=== PATIENT | female | born 1935 | race Caucasian/White ===

== ENCOUNTER 2018-07-25 13:41 | Outpatient (CLI) | payer MEDICARE, BC | END 2018-07-25 13:42 | disposition home or self-care (01) | LOC: BICCT 13:41 | PROVIDERS: ATTEND Specialist | DX: S32.000A Wedge compression fracture of unspecified lumbar vertebra, initial encounter for closed fracture (principal); S22.000A Wedge compression fracture of unspecified thoracic vertebra, initial encounter for closed fracture; M48.061 Spinal stenosis, lumbar region without neurogenic claudication; M99.83 Other biomechanical lesions of lumbar region; M47.894 Other spondylosis, thoracic region | CPT/HCPCS: 72128; 72131 ==

== ENCOUNTER 2018-10-25 06:36 | Inpatient (IN) | payer MEDICARE, BC ==
[2018-10-25 07:38] LABS: #Monocytes 0.6 thou/uL (0.11-0.59); #Neutrophils 7.2 thou/uL (1.40-6.50); %Basophils 0.1 % (0.0-1.0); %Eosinophils 0.1 % (0.0-10.0); %Monocytes 6.7 % (0.0-10.0); %Neutrophils 82.1 % (42.0-75.0); Hemoglobin 11.7 g/dL (12.0-16.0); Mean Corpuscular HGB CONC 34.5 g/dL (32.0-36.0); Mean Corpuscular Hemoglobin 33.9 pg (27.0-31.0); Platelet Count 194 thou/uL (130-400); RBC Distribution Width 12.4 % (11.5-14.5); Red Blood Cell (RBC) Count 3.47 mill/uL (4.20-5.40); White Blood Cell (WBC) Count 8.8 thou/uL (4.8-10.8)
[2018-10-25 08:07] LABS: ALT (SGPT) 12 U/L (8-55); AST (SGOT) 23 U/L (5-34); Albumin 3.2 g/dL (3.4-4.8); Alkaline Phosphatase 61 U/L (40-150); Anion Gap 9 mmol/L (10-20); BUN (Urea Nitrogen) 11 mg/dL (9.8-20.1); Bilirubin, Total 0.6 mg/dL (0.2-1.2); Calc. Creatinine Clearance 0 mL/min (70-130); Calcium 8.4 mg/dL (7.8-10.44); Carbon Dioxide 30 mmol/L (23-31); Chloride 104 mmol/L (98-107); Estimated GFR-MDRD 70; Globulin 2.9 g/dL (2.4-3.5); Glucose 105 mg/dL (83-110); Lipase 7 U/L (8-78); Potassium 3.4 mmol/L (3.5-5.1); Protein, Total 6.1 g/dL (6.0-8.3); Sodium 140 mmol/L (136-145)
[2018-10-25 08:14] LABS: CKMB 2.6 ng/mL (0-6.6); Troponin I 0.013 ng/mL (< 0.028)
[2018-10-25] MEDS ORDERED: Pregabalin 50 MG CAP PO SCH (08:15)
[2018-10-25] MEDS ORDERED: Adacel (T-DAP) 0.5 ML SYRINGE ONE (08:24)
--- NOTE | 2018-10-25 09:13 | CT ---
ABDOMEN AND PELVIC CT SCAN WITH IV CONTRAST: Date: 10/25/18 HISTORY: 83-year-old female with history of abdominal pain and nausea. COMPARISON: 08/14/16. FINDINGS: Small bilateral pleural effusions and minimal pleural based parenchymal changes, possibly mild subseg mental atelectasis. Evidence for cardiomegaly. Status post cholecystectomy. The pancreas demonstrates two small hypodensities, one in the body portion measuring 0.8 cm, and the other one more in the pooja l portion measuring 0.5 x 1.0 cm. These could represent small cysts or small cystic neoplasms. Six mo nths to 1 year follow-up is recommended. Small spleen. Adrenal glands are unremarkable. Probable smal l left lower pole cyst or small cortical infarct. No renal calculus or acute obstruction. There ar e several loops of small bowel, which appear to be jejunum, which show some borderline dilatation and some mild wall thickening. There is also suggestion of some mild wall thickening of scattered areas in the colon. These are nonspecific, but could raise the possibility of some mild enterocolitis. No C T evidence for acute appendicitis. Total right hip replacement changes with extensive associated tera fact. Postop changes involving the lumbar spine at L4 and L5 with pedicle screws and associated artif act. No intra-abdominal significant fluid collection or abscess. No evidence for overt adenopathy. Sc oliotic changes of the lumbosacral spine. No evidence for overt metastasis. IMPRESSION: 1. Small bilateral pleural effusions and pleural based parenchymal changes, probably some minimal burciaga bsegmental atelectasis. 2. Two small low attenuation foci within the pancreas, possibly small cysts or cystic masses. Consid er follow-up abdomen CT scan with and without IV contrast, with pancreatic mass protocol, in 6 months to 1 year. 3. No renal calculus or obstruction. 4. Mildly dilated with minimal associated wall thickening of several loops of small bowel, which are probably jejunum, as well as some scattered areas of minimal potential wall thickening in the colon, raising concern for nonspecific enterocolitis. No evidence for bowel obstruction or abscess, adenop athy, metastasis, or other significant acute process. POS: OFF
[2018-10-25 09:37] LABS: Bilirubin Negative (Negative); Blood, Urine Moderate (Negative); Clarity CLEAR (Clear); Glucose, Urine (Dipstick) Negative (Negative); Leukocyte Negative (Negative); Nitrite Negative (Negative); Protein, Urine (Dipstick) 30 mg/dL (Neg-Trace); Specific Gravity, Urine 1.038 (1.002-1.036); pH, Urine 7.5 (5.0-9.0)
[2018-10-25 09:42] LABS: Bacteria/HPF None Seen HPF (None Seen); Hyaline Casts/LPF 0-3 HYALINE CAST LPF (0-3 Hyaline); RBC/HPF 21-50 HPF (0-3); Squamous Epithelial 0-3 HPF (0-3); WBC/HPF 0-3 HPF (0-3)
[2018-10-25] MEDS ORDERED: metroNIDAZOLE 500 MG/100 ML BAG ONE (10:59)
[2018-10-25] MEDS ORDERED: Ondansetron ODT 4 MG TAB PO PRN (12:30)
[2018-10-25 15:35] VITALS: BMI 18.1
[2018-10-25] MEDS ORDERED: ISOVUE-370 76%-LOCM 1 ML ONE (16:14)
[2018-10-25] MEDS: Sodium Chloride 0.9% 1,000 ML IV SCH ×2 (16:39→21:03)
[2018-10-25] MEDS: Famotidine/PF 20 mg/2ml Vial SLOW IVP SCH (21:04)
[2018-10-25] MEDS: Carvedilol 3.125 MG TAB PO SCH (21:04)
[2018-10-25] MEDS: Ondansetron PF 4 MG/2 ML Vial IVP PRN (21:12)
[2018-10-25] MEDS: Acetaminophen 325 MG TAB PO PRN (22:32)
[2018-10-26] MEDS: Sodium Chloride 0.9% 1,000 ML IV SCH ×4 (00:45→16:46)
[2018-10-26 05:07] LABS: #Basophils 0.1 thou/uL (0.0-0.2); #Eosinphils 0.1 thou/uL (0.0-0.7); #Lymphocytes 2.2 thou/uL (1.20-3.40); #Monocytes 0.8 thou/uL (0.11-0.59); #Neutrophils 5.2 thou/uL (1.40-6.50); %Basophils 0.6 % (0.0-1.0); %Eosinophils 1.1 % (0.0-10.0); %Lymphocytes 26.4 % (21.0-51.0); %Monocytes 9.6 % (0.0-10.0); %Neutrophils 62.2 % (42.0-75.0); Hemoglobin 12.5 g/dL (12.0-16.0); Mean Corpuscular HGB CONC 33.8 g/dL (32.0-36.0); Mean Corpuscular Hemoglobin 33.4 pg (27.0-31.0); Mean Corpuscular Volume 98.9 fL (78.0-98.0); Mean Platelet Volume 8.2 fL (7.4-10.4); Platelet Count 200 thou/uL (130-400); RBC Distribution Width 12.4 % (11.5-14.5); Red Blood Cell (RBC) Count 3.73 mill/uL (4.20-5.40); White Blood Cell (WBC) Count 8.3 thou/uL (4.8-10.8)
[2018-10-26 05:17] LABS: ALT (SGPT) 10 U/L (8-55); AST (SGOT) 22 U/L (5-34); Albumin 2.9 g/dL (3.4-4.8); Alkaline Phosphatase 64 U/L (40-150); Anion Gap 11 mmol/L (10-20); BUN (Urea Nitrogen) 10 mg/dL (9.8-20.1); Bilirubin, Total 0.6 mg/dL (0.2-1.2); Calc. Creatinine Clearance 203 mL/min (70-130); Calcium 8.1 mg/dL (7.8-10.44); Carbon Dioxide 26 mmol/L (23-31); Chloride 108 mmol/L (98-107); Estimated GFR-MDRD 75; Globulin 2.7 g/dL (2.4-3.5); Glucose 76 mg/dL (83-110); Protein, Total 5.6 g/dL (6.0-8.3); Sodium 142 mmol/L (136-145)
[2018-10-26 05:21] LABS: Potassium 2.8 mmol/L (3.5-5.1)
[2018-10-26] MEDS: Ondansetron PF 4 MG/2 ML Vial IVP PRN ×3 (05:58→18:38)
[2018-10-26] MEDS: NS 0.9% w/ 20 MEQ KCL 1,000 ML IV SCH ×3 (07:34→23:18)
[2018-10-26] MEDS: Famotidine/PF 20 mg/2ml Vial SLOW IVP SCH ×2 (07:34→20:43)
[2018-10-26] MEDS: Carvedilol 3.125 MG TAB PO SCH ×2 (07:35→20:43)
[2018-10-26] MEDS: Digoxin 0.125 MG TAB PO SCH (07:36)
[2018-10-26] MEDS: Acetaminophen 325 MG TAB PO PRN ×2 (07:40→23:17)
[2018-10-26] MEDS ORDERED: Bisacodyl 10 MG SUPP PR SCH (11:00)
[2018-10-27] MEDS: Ondansetron PF 4 MG/2 ML Vial IVP PRN ×2 (00:48→06:43)
[2018-10-27] MEDS: Sodium Chloride 0.9% 1,000 ML IV SCH ×3 (05:41→20:35)
[2018-10-27 05:59] LABS: Anion Gap 14 mmol/L (10-20); BUN (Urea Nitrogen) 10 mg/dL (9.8-20.1); Calc. Creatinine Clearance 231 mL/min (70-130); Calcium 7.4 mg/dL (7.8-10.44); Carbon Dioxide 20 mmol/L (23-31); Chloride 111 mmol/L (98-107); Estimated GFR-MDRD 87; Glucose 45 mg/dL (83-110); Lipase 9 U/L (8-78); Potassium 4.6 mmol/L (3.5-5.1); Sodium 140 mmol/L (136-145)
[2018-10-27] MEDS: Dextrose 50% Abboject 50 ML SYRINGE ONE ×2 (06:08→06:10)
[2018-10-27] MEDS: D5 0.9% NS w/ 20 mEq KCl 1,000 ML IV SCH ×2 (06:49→16:40)
[2018-10-27] MEDS ORDERED: Mag-Al 1200 mg/1200 mg/30 ML UDCUP PO SCH (07:00)
[2018-10-27] MEDS ORDERED: Promethazine 25 MG TAB PO PRN ×2 (07:04→12:30)
[2018-10-27] MEDS: Famotidine/PF 20 mg/2ml Vial SLOW IVP SCH ×2 (07:46→20:46)
[2018-10-27] MEDS: Carvedilol 3.125 MG TAB PO SCH ×2 (07:47→20:46)
[2018-10-27] MEDS: Digoxin 0.125 MG TAB PO SCH (07:48)
[2018-10-27] MEDS: Promethazine HCl 25 MG in Sodium Chloride 0.9% 50 ML IVPB PRN ×2 (08:13→20:46)
[2018-10-27] MEDS ORDERED: Promethazine HCl 12.5 MG SUPP PR PRN (12:30)
[2018-10-27] MEDS ORDERED: Promethazine HCl 25 MG/ML VIAL SLOW IVP PRN (12:31)
[2018-10-27] MEDS ORDERED: Promethazine HCl 25 MG SUPP PR PRN (12:31)
[2018-10-27] MEDS: metroNIDAZOLE 500 MG in Premix Bag 1 BAG IVPB SCH ×2 (13:51→21:46)
[2018-10-28] MEDS: D5 0.9% NS w/ 20 mEq KCl 1,000 ML IV SCH ×4 (03:32→14:54)
[2018-10-28] MEDS: Sodium Chloride 0.9% 1,000 ML IV SCH ×2 (05:03→14:26)
[2018-10-28] MEDS: metroNIDAZOLE 500 MG in Premix Bag 1 BAG IVPB SCH ×3 (05:07→20:05)
[2018-10-28 06:00] LABS: Digoxin 0.48 ng/mL (0.8-2.0)
[2018-10-28] MEDS: Carvedilol 3.125 MG TAB PO SCH ×2 (07:41→20:00)
[2018-10-28] MEDS: Promethazine HCl 25 MG in Sodium Chloride 0.9% 50 ML IVPB PRN (07:41)
[2018-10-28] MEDS: Famotidine/PF 20 mg/2ml Vial SLOW IVP SCH ×2 (07:42→20:00)
--- NOTE | 2018-10-28 07:48 | HP ---
HISTORY OF PRESENT ILLNESS: The patient is an 83-year-old female, who made an emergency room visit to [facility] on 10/24/2018; at that time, complained of nausea. She was seen and evaluated in the emergency room. She returned back to [facility] at [facility] with similar symptoms of nausea, somewhat intractable. She did not note any fever, any diarrhea associated with this. She was recently started on some Levaquin for possible diverticulitis. She was seen and evaluated in the emergency room. CT scan of the abdomen was significant for some dilated loops of small bowel as well as some thickening, possibly enterocolitis. She continued to have the episodes of nausea and vomiting; however, despite tolerating some oral intake and having adequate IV hydration in the emergency room, the patient did not wish to return home, she wished to spend a night in the hospital. Otherwise, no other medical complaints are noted except for the above mentioned nausea. ALLERGIES: SHE IS ALLERGIC TO CODEINE. CURRENT MEDICATIONS: 1. Coreg. 2. Digoxin. 3. Eliquis. 4. Lyrica. 5. Oxybutynin. 6. Centrum. 7. Potassium chloride. 8. Labetalol. 9. She recently was started on Levaquin as well. PAST MEDICAL HISTORY: Significant for hypertension, breast cancer, skin cancer, history of atrial fibrillation status post multiple ablations. She also has a history of pacemaker, defibrillator, and gastroesophageal reflux disease. PAST SURGICAL HISTORY: Positive for cholecystectomy, hysterectomy, mastectomy, multiple orthopedic surgeries, pacemaker and defibrillator placement, right hip replacement. REVIEW OF SYSTEMS: GI: Positive as above. : Otherwise negative. CARDIOVASCULAR: Negative. RESPIRATORY: Negative. NEUROLOGIC: Otherwise negative. FAMILY HISTORY: Noncontributory. PHYSICAL EXAMINATION: VITAL SIGNS: Blood pressure 116/61, pulse 80, respirations 20, and O2 sat 96%. GENERAL: She is sleepy, drowsy, resting comfortably in a hallway bed. HEENT: Extraocular muscles intact. Sclerae and conjunctivae clear. Normocephalic and atraumatic. NECK: Supple. Full range of motion. No masses. No bruits. LUNGS: Clear. HEART: Reveals a regular rhythm without murmur, gallops, or rubs. ABDOMEN: Soft. There is some minimal lower quadrant tenderness noted without evidence of rebound or guarding. Bowel sounds are present and active. LABORATORY DATA: Her hemoglobin is 11.7, hematocrit 38.0, white blood count of 8.8. Sodium 140, potassium 3.4, chloride 104, CO2 of 30, BUN 11, creatinine 0.78. Urinalysis, some ketones, no evidence of any infection. IMPRESSION: This is an 83-year-old female with intractable vomiting, may have a low-grade colitis at this time. PLAN: The patient has been started on Cipro and will be continued on that IV at this time. We will start her on clear liquids, manage her fluids, and off her antiemetics; probably, she will be admitted to OBS and she probably can be discharged tomorrow. Job ID: [id number]
--- NOTE | 2018-10-28 07:51 | CON ---
DATE OF CONSULTATION: HISTORY OF PRESENT ILLNESS: The patient is an 83-year-old female, who was in her normal state of health until five days prior to admission when she developed nausea and vomiting. She reports she had a large amount of vomiting and dry heaves and subsequently developed diffuse abdominal soreness. She reports that she has had problems in the past with diarrhea, which she describes as brown and loose. She has had this intermittently over the last several years. Last colonoscopy was five years ago. She had an upper endoscopy two years ago without any abnormalities found. Dr. Lujan is her primary water chemist. PAST MEDICAL HISTORY: Significant for breast cancer, congestive heart failure, coronary artery disease, atrial fibrillation, and cardiac ablation. PAST SURGICAL HISTORY: Includes pacemaker defibrillator placement, right hip replacement, mastectomy, back surgery x2, hysterectomy, and cholecystectomy. ALLERGIES: CODEINE. SOCIAL HISTORY: She is a former smoker. Does not drink alcohol. FAMILY HISTORY: Negative for GI or liver disease. REVIEW OF SYSTEMS: CONSTITUTIONAL: Positive for weight loss gradually over the last two years. No fever or chills. HEENT: Eyes, no blurred vision or double vision. ENT, no sore throat or earaches. CARDIOVASCULAR: No chest pain or palpitations. PULMONARY: No shortness of breath, cough, or wheezing. GI: See above. : No hematuria or dysuria. MUSCULOSKELETAL: No joint pain or muscle weakness. NEUROLOGIC: No seizure activity or numbness. PHYSICAL EXAMINATION: GENERAL: Shows a cachectic white female in no acute distress. VITAL SIGNS: Temperature 97.8, pulse 71, respiratory rate 18, and blood pressure 157/78. HEENT: Unremarkable. NECK: Supple. CHEST: Clear. CARDIOVASCULAR: Regular rate and rhythm. ABDOMEN: Soft and nontender, without organomegaly or masses. RECTAL: Deferred. EXTREMITIES: Normal. NEUROLOGIC: Nonfocal. LABORATORY DATA: Laboratory shows a white blood cell count of 8.8, hemoglobin 11.7, hematocrit 34.0. Chemistry shows a potassium 3.4, albumin 3.2, lipase of 7. The patient had a CT on 10/25/2018 that showed small bilateral pleural effusions and pleural-based parenchymal changes, two small attenuation foci within the pancreas, mildly dilated with minimal associated wall thickening of several loops of small bowel, probably of jejunum and some thickening of the colon. ASSESSMENT: 1. Persistent nausea and vomiting of unknown etiology. 2. Abnormal CT scan of the small intestine and colon. 3. Diarrhea-Clostridium difficile culture and assays for Campylobacter and Shigella are negative. 4. Coronary artery disease. 5. Atrial fibrillation, on Eliquis. RECOMMENDATIONS: 1. Hold Eliquis. 2. Upper endoscopy per Dr. Lujan. 3. PPI. 4. Check a digoxin level. Job ID: [id number]
[2018-10-28] MEDS ORDERED: PROPOFOL 200 MG/20 ML VIAL ONE (13:55)
[2018-10-28] MEDS: Digoxin 0.125 MG TAB PO SCH (13:56)
--- NOTE | 2018-10-28 20:23 | PRG ---
DATE OF SERVICE: 10/28/2018 SUBJECTIVE: Ms. Hidalgo is doing okay. She has just recently had an EGD. EGD was normal without findings. She still complain of some nausea, has some episodes of diarrhea. OBJECTIVE: VITAL SIGNS: Temperature is 98.3 and BP 138/78. LUNGS: Clear. HEART: Reveals no murmur. ABDOMEN: Soft. Bowel sounds are present and active. No hepatosplenomegaly is noted at this time. LABORATORY DATA: Digoxin level is 0.48. Stool cultures are negative. IMPRESSION: 1. Prolonged nausea and vomiting of unknown etiology. 2. Some diarrhea, unknown etiology. PLAN: We will advance her diet as tolerated. We will reassess tomorrow. In light of normal EGD, she possibly could go home tomorrow. Job ID: [id number]
--- NOTE | 2018-10-28 21:19 | EKG ---
Test Reason : Blood Pressure : / mmHG Vent. Rate : 073 BPM Atrial Rate : 073 BPM P-R Int : 000 ms QRS Dur : 162 ms QT Int : 446 ms P-R-T Axes : 000 -43 -21 degrees QTc Int : 491 ms AV dual-paced rhythm with occasional ventricular-paced complexes Abnormal ECG When compared with ECG of 18-JAN-2016 09:46, Vent. rate has decreased BY 10 BPM Confirmed by SANCHEZ STAUFFER, SJosé Luis ([id number]) on 10/28/2018 9:19:05 PM Referred By: ELIDA Confirmed By:DR. Caron BRADFORD MD
[2018-10-29] MEDS: D5 0.9% NS w/ 20 mEq KCl 1,000 ML IV SCH ×5 (01:05→21:04)
--- NOTE | 2018-10-29 04:13 | OP ---
DATE OF PROCEDURE: 10/28/2018 OPERATIVE PERFORMED: Esophagogastroduodenoscopy. PREOPERATIVE DIAGNOSIS: An 83-year-old female with nausea and vomiting. EGD. POSTOPERATIVE DIAGNOSES: 1. Small hiatal hernia. 2. Otherwise normal exam. DESCRIPTION OF PROCEDURE: The patient was placed in the left lateral position and was given sedation by Anesthesia Department. A Pentax video gastroscope, under direct vision, was passed down the oropharynx past the GE junction into the stomach, and subsequently into the descending duodenum. The esophageal mucosa appeared normal toward the esophagus. The GE junction: No pathology seen. The patient has small hiatal hernia. Retroflexion failed to show any pathology in the fundus and cardia. The gastric body: No pathology seen. There was mild focal edema in the gastric antrum. The pyloric opening wide open. There was no pyloric channel ulcer seen. The duodenal bulb, descending duodenum: No pathology seen. The stomach was decompressed. The scope removed. OVERALL IMPRESSION: Negative exam. RECOMMENDATION: 1. A clear liquid diet. 2. Advance diet as tolerated. If the patient tolerates the diet very well, consider discharge hopefully tomorrow. Job ID: [id number]
[2018-10-29] MEDS: metroNIDAZOLE 500 MG in Premix Bag 1 BAG IVPB SCH (05:24)
[2018-10-29] MEDS: Famotidine/PF 20 mg/2ml Vial SLOW IVP SCH ×2 (08:19→20:01)
[2018-10-29] MEDS: Carvedilol 3.125 MG TAB PO SCH ×2 (08:20→20:03)
[2018-10-29] MEDS: Digoxin 0.125 MG TAB PO SCH (08:20)
[2018-10-29] MEDS: Acetaminophen 325 MG TAB PO PRN ×2 (11:33→22:21)
--- NOTE | 2018-10-29 11:40 | PRG ---
DATE OF SERVICE: 10/29/2018 SUBJECTIVE: Ms. Hidalgo is still nauseous, though she still has some diarrhea. No fevers reported. She states she still feels weak. OBJECTIVE: VITAL SIGNS: Temperature 97.7, BP 153/89. LUNGS: Clear. HEART: Reveals no murmur. ABDOMEN: Soft. There is no evidence of abdominal tenderness. No hepatosplenomegaly is noted. IMPRESSION: 1. Gastroenteritis, possible colitis. 2. Recurrent nausea of unknown etiology. PLAN: I have looked at her medicines, I am stopping all medicines at this time to see if that will improve her nausea including Flagyl as well as promethazine, she seems to be sedated to me. We will advance her diet to regular as tolerated and try some Imodium as needed for diarrhea. We will reassess. Job ID: [id number]
[2018-10-29] MEDS: Ondansetron ODT 4 MG TAB PO PRN ×2 (12:45→22:20)
--- NOTE | 2018-10-29 13:12 | PQF ---
CLINICAL DOCUMENTATION IMPROVEMENT CLARIFICATION FORM: ICD-10 Updated PLEASE DO AN ADDENDUM TO THE PROGRESS NOTE WITH ANY DOCUMENTATION UPDATES OR ADDITIONS AND CARRY THROUGH TO DC SUMMARY. THANK YOU. DATE: 10/29/18 ATTN: Dr. Laron Freeman Please exercise your independent, professional judgment in responding to the clarification form. Clinical indicators are provided on the bottom of this form for your review Please check appropriate box(s): BMI <19 with associated diagnosis of: (check one) [ ] Cachexia [ ] Underweight without malnutrition [ ] Other diagnosis [ ] Unable to determine In addition, please specify: Present on Admission (POA): [ ] Yes [ ] No [ ] Unable to Determine For continuity of documentation, please document condition throughout progress notes and discharge summary. Thank You. CLINICAL INDICATORS - SIGNS / SYMPTOMS / LABS GI consult 10/27: 5 days prior to admission she developed nausea & vomiting Positive for weight loss gradually over the last 2 yrs PE: Shows a cachectic white female in no acute distress [employer] Specialist assessment 10/27: BMI 18.1 Suboptimal Oral intake related to nausea, poor appetite RISKS: H&P 10/27: 83 yr old with intractable vomiting. TREATMENT: [employer] Specialist Assessment triggered for PO, N, V, BMI 18.1 BMI < 19.0 Under weight 19.0 - 24.9 Healthy 25.0 - 29.9 Slightly Overweight 30.0 - 34.9 Obese 35.0 - 39.9 Severely Obese 40.0 and Over Morbidly Obese Thank you, Inga (This form is maintained as a part of the permanent medical record) 2014 [employer]. All Rights Reserved Inga Sun RN, BSN [email or web address] Office: [phone] [facility]
[2018-10-30] MEDS: Famotidine/PF 20 mg/2ml Vial SLOW IVP SCH (07:45)
[2018-10-30] MEDS: Carvedilol 3.125 MG TAB PO SCH (07:47)
[2018-10-30] MEDS: Digoxin 0.125 MG TAB PO SCH (07:48)
[2018-10-30] MEDS ORDERED: Famotidine 20 MG TAB PO SCH (09:00)
[2018-10-30 13:41] VITALS: BP 150/67; TEMP 98.2
--- NOTE | 2018-10-30 18:16 | PRG ---
DATE OF SERVICE: 10/29/2018 SUBJECTIVE: Ms. Lisa Hidalgo is a very pleasant 83-year-old female, hospitalized with abdominal pain, nausea, vomiting, and diarrhea. The patient's abdominal CAT scan revealed no pathology except for mild thickening of the small bowel loops and possibly colon. She had an EGD yesterday, which revealed no pathology to nausea and vomiting. The patient has had clear liquid diet and she is able to keep the clear liquid down. She has nausea, but no vomiting. She had been having diarrhea. She had 2 stools yesterday, both watery and this morning had one stool. No blood in the stool. She has some intermittent abdominal cramping. Stool studies have been negative in the past. She is on Flagyl, which has been discontinued this morning by Dr. Freeman. OBJECTIVE: GENERAL: The patient appears very comfortable. She is looking elderly female, appears comfortable. VITAL SIGNS: Stable. Afebrile. Pulse is 75, blood pressure 153/89. HEENT: Conjunctivae clear. CARDIOVASCULAR: First and second heart sounds . LUNGS: Clear to auscultation. ABDOMEN: Soft. Abdomen is nondistended. Abdomen is nontender. There is no organomegaly. IMPRESSION: 1. Nausea and vomiting, etiology unclear. May possibly be drug induced. 2. Diarrhea, possibly infectious. The frequency is not that bad. She has had only 2 stools yesterday and 1 stool today. RECOMMENDATIONS: 1. Heart-healthy diet. 2. Discontinue antibiotics. 3. Stool for culture and ova and parasites. 4. If she tolerates her diet with her nausea, vomiting, may consider discharge home tomorrow. Job ID: [id number]
--- NOTE | 2018-10-30 20:27 | PRG ---
DATE OF SERVICE: 10/30/2018 SUBJECTIVE: Ms. Hidalgo is doing better. She does not have any further vomiting. She is still having very small episodic diarrheal movements. Otherwise, no other medical complaints are noted. OBJECTIVE: VITAL SIGNS: Blood pressure 153/80 and temperature 97.5. LUNGS: Clear. HEART: Reveals no murmur. ABDOMEN: Soft. Bowel sounds are present and active. Stool studies performed. screen is normal. Campylobacter, Shigella, E. coli toxin are normal. IMPRESSION: Colitis, gastroenteritis of unknown etiology. PLAN: The patient can be safely discharged home today on home medicines. She also will be placed on pantoprazole 40 mg p.o. daily. She will follow up with me in 1 week. Job ID: [id number]
--- NOTE | 2018-10-31 06:13 | DIS ---
DATE OF ADMISSION: 10/27/2018 DATE OF DISCHARGE: 10/30/2018 DISCHARGE DIAGNOSES: 1. Intractable vomiting. 2. Gastroenteritis, etiology unknown. 3. Dehydration. ADMITTING PHYSICIAN: Dr. Laron Freeman. CONSULTING PHYSICIAN: Dr. Lujan. HOSPITAL SUMMARY: The patient is an 83-year-old female, who was admitted to the emergency room on 10/25/2018 with retractable vomiting. She had been seen in the ER twice, subsequently admitted to hospital and has been on IV fluids. She continued to have intractable vomiting while hospitalized associated with some diarrhea. GI consult was obtained. She underwent EGD, which is unremarkable. All stool studies for C. difficile, Shiga toxin, Campylobacter, E. coli, and parasite screens were normal. She slowly improved where she was able to tolerate oral intake with no further nausea or vomiting. She continued to have some small bouts of diarrhea. She was ready to be discharged home. DISCHARGE MEDICATIONS: 1. Zofran 4 mg every 6 hours as needed for nausea. 2. Pantoprazole 40 mg p.o. daily. 3. Additionally, she was maintained on her home medicines of Eliquis one tablet p.o. b.i.d. 4. Repatha 1 shot every 2 weeks. 5. Carvedilol b.i.d. 6. Oxybutynin 50 mg daily. 7. Furosemide 40 mg daily. 8. Digoxin 0.125 mg daily. 9. Tramadol as needed for pain. 10. Lyrica 200 mg at bedtime. 11. Imodium as needed for diarrhea. FOLLOWUP: She will follow up with me in 1 week. Job ID: [id number]
--- NOTE | 2018-11-02 12:05 | EKG ---
Test Reason : Blood Pressure : / mmHG Vent. Rate : 072 BPM Atrial Rate : 300 BPM P-R Int : 000 ms QRS Dur : 174 ms QT Int : 444 ms P-R-T Axes : 000 -48 -17 degrees QTc Int : 486 ms AV sequential or dual chamber electronic pacemaker Confirmed by RYDER KAY DO ([id number]), editor trade journal EDWIN LEE ([id number]) on 11/02/2018 12:05:15 PM Referred By: Confirmed By:RYDER KAY DO
== END 2018-10-30 14:04 | disposition home or self-care (01) | DRG 392 ==
LOC: ERS 06:36 → ERHOLD 11:37 → T4-A 15:15 → OBSVTOIN 10-27 12:01
PROVIDERS: ADMIT Family Medicine; ATTEND Family Medicine
PROC: 0DJ08ZZ Inspection of Upper Intestinal Tract, Via Natural or Artificial Opening Endoscopic (ICD-10-PCS; principal; 2018-10-28)
DX: K52.9 Noninfective gastroenteritis and colitis, unspecified (principal); K21.9 Gastro-esophageal reflux disease without esophagitis; I25.10 Atherosclerotic heart disease of native coronary artery without angina pectoris; I48.91 Unspecified atrial fibrillation; E86.0 Dehydration; I11.0 Hypertensive heart disease with heart failure; I50.9 Heart failure, unspecified; K44.9 Diaphragmatic hernia without obstruction or gangrene; Z88.5 Allergy status to narcotic agent; Z87.891 Personal history of nicotine dependence; Z85.3 Personal history of malignant neoplasm of breast; Z85.828 Personal history of other malignant neoplasm of skin; Z95.810 Presence of automatic (implantable) cardiac defibrillator; Z90.49 Acquired absence of other specified parts of digestive tract; Z96.641 Presence of right artificial hip joint; Z90.10 Acquired absence of unspecified breast and nipple
CPT/HCPCS: 36415; 36416; 74177; 80048; 80053; 80162; 81003; 81015; 82550; 82553; 83690; 84484; 85025; 87045; 87046; 87324; 87328; 87329; 87449; 87899; 90471; 90662; 90715; 90732; 93005; 93010; 96365; 96367; G0008; G0009; J0744; J2405; J2550; J2704; J7050; Q0162; S0028

== ENCOUNTER 2018-12-20 13:31 | Outpatient (CLI) | payer MEDICARE, BC ==
--- NOTE | 2018-12-20 16:21 | CT ---
LUMBAR SPINE CT SCAN WITHOUT IV CONTRAST: History: S32.000A closed wedge fracture of lumbar vertebra. Back pain for years. Bilateral leg numbness. Prior lumbar surgery. FINDINGS: There is some levoscoliosis of the lower lumbar vertebral column and dextroscoliosis of the upper lum bar/lower thoracic vertebral column. There is heterogeneous bony demineralization. Pedicle screws sta bilize the L4 and L5 region. L1-2: There is some mild disc osteophytosis with mild lateral recess stenosis. No central canal steno sis. L2-3: There is more extensive disc osteophytosis with moderate central canal and moderate bilateral r ecess stenosis and some bilateral foraminal stenosis. L3-4: There is extensive disc osteophytosis with severe ligament and facet hypertrophic changes, much worse on the right side with severe central spinal canal stenosis and very severe right lateral rece ss stenosis and severe right foraminal stenosis and mild left foraminal stenosis. L4-5: There is diffuse disc osteophytosis with mild lateral recess stenosis and moderate to severe ri ght foraminal stenosis. Mild disc osteophytosis at L5-S1 without significant central canal, lateral recess, or significant fo raminal stenosis. No evidence for acute compression or burst type fracture. IMPRESSION: Pedicle screw placement changes at L4-5. Extensive scoliotic changes. Variable severity multilevel ca nal, lateral recess, and foraminal stenosis most marked at L3-4 followed by L4-5. POS: CONRAD
--- NOTE | 2018-12-20 17:33 | CT ---
THORACIC SPINE CT SCAN WITHOUT IV CONTRAST: 12/20/18 HISTORY: Closed wedge fracture of the thoracic vertebra, unspecified thoracic vertebral level, initial encount er. Back pain for years radiating pain to left shoulder. Fall last night. Pain became worse. FINDINGS: Generalized disc osteophytosis and bone demineralization of the thoracic spine. Dextroscoliosis of th e upper lumbar lower thoracic vertebral column. No evidence for acute fracture or dislocation or sign ificant malalignment. No evidence for focal bone lesion. Incidental bilateral old pulmonary granuloma calcifications. Multiple bilateral thyroid nodules to 0.9 x 1.5 cm on the left side. Deformity of th e distal right clavicle, evidence for old injury. IMPRESSION: Fairly extensive thoracic disc osteophytosis and facet arthrosis, evidence for spondylosis. Bone aleida neralization. No evidence for acute fracture or dislocation or significant malalignment. Other findin gs as above. POS: CONRAD
== END 2018-12-20 13:32 | disposition home or self-care (01) ==
LOC: BICCT 13:31
PROVIDERS: ATTEND Specialist
DX: S32.000A Wedge compression fracture of unspecified lumbar vertebra, initial encounter for closed fracture (principal); S22.000A Wedge compression fracture of unspecified thoracic vertebra, initial encounter for closed fracture; M47.814 Spondylosis without myelopathy or radiculopathy, thoracic region; M25.78 Osteophyte, vertebrae; M48.061 Spinal stenosis, lumbar region without neurogenic claudication
CPT/HCPCS: 72128; 72131

== ENCOUNTER 2019-03-25 10:33 | Outpatient (CLI) | payer MEDICARE, BC ==
--- NOTE | 2019-03-25 11:19 | CT ---
Noncontrast enhanced CT images thoracic spine. HISTORY: Recent history of fall with back pain. Axial images are obtained with coronal and sagittal reconstructions. Comparison made to previous exam from 12/20/2018. Old distal right clavicular fracture is seen. Multilevel thoracic spine osteophytes and disc degenerative changes seen. No significant evidence of acute thoracic spine lesions seen. No evidence of soft tissue abnormality seen. IMPRESSION: No evidence of acute thoracic spine pathology seen.
== END 2019-03-25 10:34 | disposition home or self-care (01) ==
LOC: BICCT 10:33
PROVIDERS: ATTEND Nurse Practitioner Family
DX: M47.814 Spondylosis without myelopathy or radiculopathy, thoracic region (principal)
CPT/HCPCS: 72128

== ENCOUNTER 2019-07-17 12:32 | Emergency (ER) | payer MEDICARE, BC ==
--- NOTE | 2019-07-17 13:24 | RAD ---
Exam:3 views right wrist HISTORY: Pain. Injury. Fall. COMPARISON: None FINDINGS: Diffuse bone demineralization. Degenerative change involving the first carpometacarpal join t space. No definite fracture. Vascular calcifications are noted. No significant soft tissue swelling IMPRESSION: 1. Diffuse bone demineralization. No definite fracture. If there is pain or point tenderness, immobil ization and follow-up imaging in 7-10 days.
--- NOTE | 2019-07-17 15:26 | CT ---
HEAD CT WITHOUT CONTRAST: Date: 07/17/19 COMPARISON: None. HISTORY: Fall, trauma, pain. TECHNIQUE: Axial CT imaging at 5 mm intervals from vertex through skull base with coronal and sagittal reformatt ed imaging. FINDINGS: The imaged paranasal sinuses and mastoid air cells are well aerated. No displaced calvarial fracture is seen. There is no intracranial hemorrhage, midline shift, mass effect, or ventricular enlargement. Periventricular hypodensity noted, evidence of small vessel disease. IMPRESSION: No intracranial hemorrhage or displaced calvarial fracture. POS: TPC
== END 2019-07-17 13:30 | disposition home or self-care (01) ==
LOC: SCSER 12:32
DX: S63.501A Unspecified sprain of right wrist, initial encounter (principal); S00.83XA Contusion of other part of head, initial encounter; I48.91 Unspecified atrial fibrillation; K21.9 Gastro-esophageal reflux disease without esophagitis; Z87.891 Personal history of nicotine dependence; W22.8XXA Striking against or struck by other objects, initial encounter
CPT/HCPCS: 70450

== ENCOUNTER 2019-09-29 11:01 | Outpatient (CLI) | payer MEDICARE, BC ==
--- NOTE | 2019-09-29 11:57 | RAD ---
CERVICAL SPINE FOUR VIEWS: 09/29/2019 12:00 a.m. CLINICAL INDICATION: Stenosis. COMPARISON: None. FINDINGS: Fracture: No fracture. Arthropathy: Multilevel moderate degenerative change at the cervical spine is present including disc space narrowing, marginal osteophytosis and facet osteoarthritis. There is grade I spondylolisthesis at C7-T1 without significant translational motion identified by fl exion/extension positioning. The dens and lateral masses of C1 are partially obscured by overlying osseous structures and dentition, limiting assessment. Incidental findings: Vascular calcification and partially imaged AICD leads. IMPRESSION: 1. Moderate multilevel degenerative change throughout the cervical spine. 2. There is grade I spondylolisthesis at C7-T1 without significant translational motion identified. Transcribed Date/Time: 09/29/2019 12:13 PM
--- NOTE | 2019-09-29 12:24 | RAD ---
XR Lumbar Spine Bending Min 4V HISTORY: Back pain COMPARISON: None. FINDINGS: The bones appear demineralized. There is a marked scoliotic change to the spine upper curva ture more convex to the right. Bilateral pedicle screws are seen at L4-5 with vertical connecting rods. Marked disc narrowing is seen at the L2-3 L3-4 and L4-5 levels. Pedicles appear intact. No abno rmal motion is seen on the flexion or extension views. IMPRESSION: Postoperative changes of the spine with severe arthritic changes and scoliosis.
== END 2019-09-29 11:02 | disposition home or self-care (01) ==
LOC: RAD 11:01
PROVIDERS: ATTEND Specialist
DX: M48.062 Spinal stenosis, lumbar region with neurogenic claudication (principal); M48.02 Spinal stenosis, cervical region; M41.9 Scoliosis, unspecified; M46.92 Unspecified inflammatory spondylopathy, cervical region; M43.13 Spondylolisthesis, cervicothoracic region; M47.812 Spondylosis without myelopathy or radiculopathy, cervical region; Z98.890 Other specified postprocedural states
CPT/HCPCS: 72050; 72120

== ENCOUNTER 2019-10-02 11:10 | Outpatient (CLI) | payer MEDICARE, BC ==
--- NOTE | 2019-10-02 13:54 | CT ---
CT CERVICAL SPINE WITHOUT CONTRAST: HISTORY: Trauma. Pain.. COMPARISON: 06/06/2007. FINDINGS: No craniocervical dissociation. Appropriate alignment of the lateral masses of C1 and C2. Intact odon toid process Appropriate alignment of the facets. Soft tissue neck structures: No mass, lymphadenopathy or hematoma. No prevertebral soft tissue swelli ng. Heterogeneous thyroid gland. Upper mediastinum and lung apices: Unremarkable. Central spinal canal: Limited evaluation due to technique. C2-C3: No high-grade central canal stenosis or high-grade foraminal narrowing. C3-C4: Broad-based disc-osteophyte complex with mild central canal stenosis. Moderate right and sever e left neural foraminal narrowing. C4-C5: Broad-based disc-osteophyte complex with mild central canal stenosis. Mild to moderate bilater al foraminal narrowing. There is bilateral uncovertebral hypertrophy and left facet hypertrophy. C5-C6: Broad-based disc-osteophyte complex. Mild central canal stenosis. Mild bilateral foraminal radha rowing due to uncovertebral hypertrophy. C6-C7: Broad-based disc-osteophyte complex without significant central canal stenosis. Mild bilateral neural foraminal narrowing due to uncovertebral hypertrophy. C7-T1: No significant central canal stenosis or significant neural foraminal narrowing. Grade 1 anter olisthesis of C7 upon T1. Vertebral bodies: Cervical spine vertebral body height is maintained. No fracture. IMPRESSION: 1. Degenerative changes of the cervical spine as described above. 2. No fracture. 3. Heterogeneous thyroid gland. Nonemergent thyroid ultrasound. Transcribed Date/Time: 10/02/2019 2:11 PM
--- NOTE | 2019-10-02 14:03 | CT ---
CT LUMBAR SPINE WITHOUT CONTRAST: HISTORY: Lumbar spinal stenosis. Neurogenic claudication. History of previous lumbar surgery. COMPARISON: 12/20/2018. FINDINGS: Visualized lung bases are clear. No retroperitoneal mass, lymphadenopathy or hematoma. Atherosclerosis of a nonaneurysmal aorta. Symmetric attenuation of the paraspinal muscles. Reflux solid organs are grossly unremarkable. Stable rightward curvature of the upper lumbar spine. Redemonstration of bilateral transpedicular scr ews at L4 and L5. No periarticular lucency. Stable bone graft material along the posterior elements. There is no significant spondylolisthesis. R edemonstration of bilateral pars defects at L5. Vacuum disc phenomenon at T11-T12, T12-L1, L1-L2 and L3-L4. T11-T12: No significant central canal stenosis. Neural foramina are patent bilaterally. T12-L1: No significant central canal stenosis. Neural foramina are patent. L1-L2: No significant central canal stenosis. Neural foramina are patent. L2-L3: Severe loss of disc space height. Broad-based disc bulge, mild ligament flavum thickening and facet hypertrophy result in mild central canal stenosis. Right neural foramen is patent. Mild left neural foraminal narrowing. L3-L4: Vacuum disc phenomenon. Broad-based disc bulge, ligamentum flavum thickening and facet hypertr ophy result in moderate to severe central canal stenosis. The degree of central canal stenosis is unchanged. Moderate right neural foraminal narrowing. Left neural foramen is mildly narrowed. L4-L5: Severe loss of disc space height. Broad-based disc bulge results in mild central canal stenosi s. There is posterior element hypertrophy and fusion changes. Right neural foramen is moderately narrowed. Left neural foramen is patent. L5-S1: No significant central canal stenosis. Neural foramina are patent. IMPRESSION: 1. Stable lumbar fusion. 2. Stable scoliosis. 3. Stable degenerative changes of the lumbar spine. There is moderate to severe central canal stenosi s at L3-L4. Transcribed Date/Time: 10/02/2019 2:16 PM
== END 2019-10-02 11:11 | disposition home or self-care (01) ==
LOC: BICCT 11:10
PROVIDERS: ATTEND Specialist
DX: M48.02 Spinal stenosis, cervical region (principal); M48.062 Spinal stenosis, lumbar region with neurogenic claudication; M41.9 Scoliosis, unspecified; M47.816 Spondylosis without myelopathy or radiculopathy, lumbar region; Z98.1 Arthrodesis status
CPT/HCPCS: 72125; 72131

== ENCOUNTER 2020-04-06 06:47 | Day surgery (SDC) | payer MEDICARE, BC ==
[2020-04-05 12:12] VITALS: BMI 15.7
[2020-04-06 07:46] VITALS: BP 135/60; TEMP 98.2
--- NOTE | 2020-04-06 08:42 | RAD ---
COMPLETE SPINE MYELOGRAM: HISTORY: Cervical, thoracic and lumbar pain. FINDINGS: Initial two-view drafting layout worker lumbar spine radiograph demonstrates fusion changes at L4-L5 with bilateral tr anspedicular screws. There does appear to be perihardware lucency involving the right L4 transpedicular screw. Lumbar spine vertebral body height is maintained. No fracture. Mild rightward c urvature of the upper lumbar spine. Visualized sacrum and bony pelvis appear to be intact. Successful lumbar puncture for complete myelogram. A total of 9 cc of Isovue-M 300 contrast was admin istered at the L1-L2 level. Patient tolerated the procedure well. No immediate or postprocedure complications. TECHNIQUE: Consent was obtained to perform a lumbar puncture for complete myelogram. Patient's back was evaluate d. The L1-L2 level was deemed appropriate. Skin was prepped and draped in a sterile fashion. 1% lidocaine, buffered with sodium bicarbonate was used for local anesthesia. Under fluoroscopic guidanc e, a 22-gauge spinal needle was advanced into the CSF space. There is prompt flow of clear CSF into the hub of the needle. Via a short tubing catheter, a total of 9 cc of Isovue-M 300 contrast was admi nistered intrathecally. Patient tolerated the procedure well. No immediate or post procedure complications. IMPRESSION: Successful lumbar puncture for complete myelogram. Transcribed Date/Time: 04/06/2020 11:05 AM
[2020-04-06] MEDS ORDERED: Iopamidol-M 300 61% 15 ML VIAL ONE (09:31)
--- NOTE | 2020-04-06 10:04 | CT ---
POST MYELOGRAM CERVICAL SPINE CT HISTORY: Cervical pain. COMPARISON: None. FINDINGS: No craniocervical dissociation. Appropriate alignment of the lateral masses of C1 and C2. Intact odon toid process. Multilevel facet arthropathy. Cervical spine vertebral body height is maintained. No fracture. Multilevel degenerative changes throughout the cervical spine. No acute abnormality in the visualized soft tissue neck structures. Heterogeneous thyroid gland with multiple nodules. Complete evaluation with ultrasound can be performed. Groundglass opacities in the visualized lung parenchyma. C2-C3: No significant central canal stenosis or significant neural foraminal narrowing. C3-C4: Severe loss of disc space height. Broad-based disc-osteophyte complex. Mild central canal sten osis. Moderate right and moderate to severe left foraminal narrowing due to uncovertebral and facet hypertrophy. C4-C5:Severe loss of disc space height. Broad-based disc-osteophyte complex abuts the thecal sac. No significant central canal stenosis. Mild to moderate bilateral foraminal narrowing due to uncovertebral hypertrophy. C5-C6: Broad-based disc-osteophyte complex abuts the thecal sac. Subarachnoid space is effaced. There is flattening of the cervical cord with at least [id number] central canal stenosis. Moderate to severe bilateral neural foraminal narrowing due to uncovertebral and to a lesser extent facet hype rtrophy. C6-C7:Broad-based disc-osteophyte complex abuts the thecal sac. Mild mass effect upon the midline anthony tral cord. No significant central canal stenosis. Mild to moderate right and mild left neural foraminal narrowing. C7-T1: No significant central canal stenosis or significant neural foraminal narrowing. IMPRESSION: 1.No fracture. 2. Multilevel degenerative changes of the cervical spine as described above. 3. Heterogeneous thyroid gland with multiple hypodense nodules. Nonemergent thyroid ultrasound. CODE T Transcribed Date/Time: 04/06/2020 10:32 AM
--- NOTE | 2020-04-06 10:07 | CT ---
THORACIC SPINE CT WITH CONTRAST: HISTORY: Thoracic spine pain. COMPARISON: None. FINDINGS: Heterogeneous thyroid gland. Limited evaluation of the mediastinum due to lack of IV contrast. No mass, lymphadenopathy or hematom a. Normal heart size. There is atherosclerosis of a nonaneurysmal aorta.. Trachea and central bronchi are patent. Patchy groundglass opacities in the lung parenchyma. Dependen t atelectatic changes. No definite pneumothorax or significant pleural fluid. Thoracic spine vertebral body heights are maintained. There is no fracture. No malalignment. The thoracic spine central spinal canal is patent. There is no significant central canal stenosis. Ne ural foramina are patent. IMPRESSION: 1. No fracture. 2. No significant central canal stenosis or significant neural foraminal narrowing throughout the tho racic spine. Transcribed Date/Time: 04/06/2020 10:34 AM
--- NOTE | 2020-04-06 11:03 | CT ---
POSTCONTRAST LUMBAR SPINE CT: HISTORY: Low back pain. COMPARISON: 06/06/2012, 10/02/2019. FINDINGS: Five lumbar-type vertebrae. Lumbar spine vertebral body height is maintained. No fracture. Stable mil d S-shaped scoliotic curvature of the lumbar spine. Visualized solid organs have appropriate attenuation. Visualized alimentary canal is grossly unremark able. No retroperitoneal mass, lymphadenopathy or hematoma. Atherosclerosis of a nonaneurysmal aorta. Visualized sacrum and bony pelvis are intact. Bilateral L5 pars defects without significant spondylolisthesis. There are bilateral transpedicular s crews at L4 and L5. No perihardware lucency. Conus medullaris terminates at the inferior aspect of T12. T12-L1: No significant central canal stenosis or significant neural foraminal narrowing. L1-L2: Vacuum disc phenomenon. Minimal left and right paracentral disc bulges. No significant central canal stenosis. Neural foramina are patent. L2-L3: Severe loss of disc space height. Broad-based disc bulge abuts the thecal sac. Mild central ca nal stenosis. Right neural foramen is patent. Moderate left neural foraminal narrowing. L3-L4: Broad-based disc bulge, facet hypertrophy and ligamentum flavum thickening result in mild to m oderate central canal stenosis. Narrowing of the right subarticular zone with obscuration traversing right L4 nerve root. Moderate to severe right and moderate left neural foraminal narrowing . L4-L5: Severe loss of disc space height. Broad-based disc bulge minimally contacts the thecal sac. No significant central canal stenosis. Moderate right and [id number] left neural foraminal narrowing. L5-S1: No significant central canal stenosis. Mild right neural foraminal narrowing. Left neural fora men is patent. IMPRESSION: 1. Postsurgical changes with lumbar fusion at L4-L5. 2. Bilateral pars defects at L5 without associated spondylolisthesis. 3. Varying degrees of central canal stenosis and neural foraminal narrowing as detailed above. Transcribed Date/Time: 04/06/2020 11:10 AM
== END 2020-04-06 10:15 | disposition home or self-care (01) ==
LOC: RAD 06:47 → EDSTATUS 08:00 → RAD 10:15
PROVIDERS: ATTEND Neurological Surgery
PROC: B01B1ZZ Fluoroscopy of Spinal Cord using Low Osmolar Contrast (ICD-10-PCS; principal; 2020-04-06)
DX: M47.22 Other spondylosis with radiculopathy, cervical region (principal); M47.12 Other spondylosis with myelopathy, cervical region; M48.02 Spinal stenosis, cervical region; M50.122 Cervical disc disorder at C5-C6 level with radiculopathy; M50.022 Cervical disc disorder at C5-C6 level with myelopathy; M54.6 Pain in thoracic spine; M48.062 Spinal stenosis, lumbar region with neurogenic claudication; M41.56 Other secondary scoliosis, lumbar region; E04.2 Nontoxic multinodular goiter; I70.0 Atherosclerosis of aorta; I11.0 Hypertensive heart disease with heart failure; I50.9 Heart failure, unspecified; I48.91 Unspecified atrial fibrillation; I25.10 Atherosclerotic heart disease of native coronary artery without angina pectoris; K21.9 Gastro-esophageal reflux disease without esophagitis; E11.40 Type 2 diabetes mellitus with diabetic neuropathy, unspecified; I73.00 Raynaud's syndrome without gangrene; Z79.01 Long term (current) use of anticoagulants; Z79.899 Other long term (current) drug therapy; Z88.5 Allergy status to narcotic agent; Z98.1 Arthrodesis status; Z95.0 Presence of cardiac pacemaker
CPT/HCPCS: 62305; 72126; 72129; 72132; Q9967

== ENCOUNTER 2021-05-06 14:00 | Inpatient (IN) | payer MEDICARE, BC ==
[2021-05-06 14:41] LABS: #Basophils 0.1 thou/uL (0.0-0.2); #Eosinphils 0.2 thou/uL (0.0-0.7); #Lymphocytes 2.6 thou/uL (1.20-3.40); #Monocytes 0.9 thou/uL (0.11-0.59); #Neutrophils 5.3 thou/uL (1.40-6.50); %Basophils 0.6 % (0.0-1.0); %Lymphocytes 28.7 % (21.0-51.0); %Monocytes 10.3 % (0.0-10.0); %Neutrophils 58.4 % (42.0-75.0); Hemoglobin 12.6 g/dL (12.0-16.0); Mean Corpuscular HGB CONC 33.3 g/dL (32.0-36.0); Mean Corpuscular Hemoglobin 33.6 pg (27.0-31.0); Mean Platelet Volume 8.3 fL (7.4-10.4); Platelet Count 195 thou/uL (130-400); RBC Distribution Width 12.3 % (11.5-14.5); Red Blood Cell (RBC) Count 3.74 mill/uL (4.20-5.40); White Blood Cell (WBC) Count 9.1 thou/uL (4.8-10.8)
[2021-05-06 15:09] LABS: ALT (SGPT) 13 U/L (8-55); AST (SGOT) 32 U/L (5-34); Albumin 4.1 g/dL (3.4-4.8); Alkaline Phosphatase 74 U/L (40-110); Anion Gap 13 mmol/L (10-20); BUN (Urea Nitrogen) 14 mg/dL (9.8-20.1); Bilirubin, Total 0.5 mg/dL (0.2-1.2); Calc. Creatinine Clearance 0 mL/min (70-130); Calcium 9.7 mg/dL (7.8-10.44); Carbon Dioxide 32 mmol/L (23-31); Chloride 98 mmol/L (98-107); Globulin 3.9 g/dL (2.4-3.5); Glucose 88 mg/dL (83-110); Potassium 4.4 mmol/L (3.5-5.1); Sodium 139 mmol/L (136-145)
[2021-05-06 15:27] LABS: CKMB 1.2 ng/mL (0-6.6)
[2021-05-06] MEDS ORDERED: Nitroglycerin 2% Ointment 1 INCH/1 GM Packet ONE (16:24)
[2021-05-06] MEDS ORDERED: Acetaminophen 500 MG TAB ONE (16:24)
[2021-05-06] MEDS ORDERED: Acetaminophen 650 MG Suppository PR PRN (16:39)
[2021-05-06] MEDS ORDERED: Acetaminophen 325 MG TAB PO PRN (16:39)
[2021-05-06] MEDS ORDERED: Nitroglycerin 0.4 MG TAB (25 Tab Bottle) SL PRN (16:39)
[2021-05-06] MEDS ORDERED: Aspirin 325 MG TAB PO SCH (16:45)
[2021-05-06 17:46] LABS: Digoxin 1.33 ng/mL (0.8-2.0)
[2021-05-06 17:51] LABS: Troponin I 0.043 ng/mL (< 0.028)
[2021-05-06] MEDS ORDERED: Magnesium 2 GM/50 ML 2 GM in Premix Bag 1 BAG IVPB SCH (18:15)
[2021-05-06 18:33] VITALS: BMI 14.7
[2021-05-06] MEDS: Carvedilol 3.125 MG TAB PO SCH (20:19)
[2021-05-06 20:54] LABS: Troponin I 0.053 ng/mL (< 0.028)
[2021-05-07 05:06] LABS: #Basophils 0.1 thou/uL (0.0-0.2); #Eosinphils 0.2 thou/uL (0.0-0.7); #Lymphocytes 2.3 thou/uL (1.20-3.40); #Monocytes 0.8 thou/uL (0.11-0.59); #Neutrophils 3.5 thou/uL (1.40-6.50); %Basophils 0.9 % (0.0-1.0); %Eosinophils 2.7 % (0.0-10.0); %Lymphocytes 33.4 % (21.0-51.0); %Monocytes 12.1 % (0.0-10.0); %Neutrophils 50.9 % (42.0-75.0); Hemoglobin 12.5 g/dL (12.0-16.0); Mean Corpuscular HGB CONC 32.7 g/dL (32.0-36.0); Mean Corpuscular Hemoglobin 32.8 pg (27.0-31.0); Mean Platelet Volume 7.8 fL (7.4-10.4); Platelet Count 203 thou/uL (130-400); RBC Distribution Width 12.2 % (11.5-14.5); Red Blood Cell (RBC) Count 3.81 mill/uL (4.20-5.40); White Blood Cell (WBC) Count 6.8 thou/uL (4.8-10.8)
[2021-05-07 05:26] LABS: Anion Gap 14 mmol/L (10-20); BUN (Urea Nitrogen) 17 mg/dL (9.8-20.1); Calc. Creatinine Clearance 30 mL/min (70-130); Calcium 9.3 mg/dL (7.8-10.44); Carbon Dioxide 30 mmol/L (23-31); Cardiac Risk 2.2 (Less than 4.5); Chloride 99 mmol/L (98-107); Cholesterol 124 mg/dl (< 200 Desired); Glucose 90 mg/dL (83-110); HDL Cholesterol 57 mg/dL (>60 Neg Risk); LDL Cholesterol, Calculated 49 mg/dL; Potassium 3.7 mmol/L (3.5-5.1); Sodium 139 mmol/L (136-145); Triglycerides 90 mg/dL (Less than 150)
[2021-05-07] MEDS: Digoxin 0.125 MG TAB PO SCH (12:22)
[2021-05-07] MEDS: Aspirin Chewable 81 MG TAB PO SCH (12:22)
[2021-05-07] MEDS: Carvedilol 3.125 MG TAB PO SCH ×2 (12:23→20:20)
[2021-05-07] MEDS ORDERED: Communication Order-Pharmacy FS SCH (13:00)
[2021-05-07] MEDS ORDERED: Sodium Chloride 0.9% 1,000 ML IV SCH (13:00)
[2021-05-07] MEDS ORDERED: oxyCODONE/Acetaminophen 5 mg/325 mg Tablet PO PRN (13:03)
[2021-05-07 13:34] LABS: Hemoglobin 13.3 g/dL (12.0-16.0); Platelet Count 203 thou/uL (130-400)
[2021-05-07] MEDS: Heparin 25,000 units/D5W 500 ML IVPB SCH (13:53)
[2021-05-07] MEDS: Heparin 10,000 UNITS/ 10 ML VIAL SLOW IVP SCH ×2 (13:53→21:16)
[2021-05-07] MEDS: cycloSPORINE 0.05% Ophthalmic Droperette EA EYE SCH (20:20)
[2021-05-07] MEDS: Oxybutynin ER 5 MG TAB PO SCH (20:20)
[2021-05-07] MEDS ORDERED: Ketamine 50 MG/ML (10ML VIAL) ONE (22:14)
[2021-05-08] MEDS: Heparin 10,000 UNITS/ 10 ML VIAL SLOW IVP SCH (05:21)
[2021-05-08] MEDS: Aspirin Chewable 81 MG TAB PO SCH (08:27)
[2021-05-08] MEDS: Digoxin 0.125 MG TAB PO SCH (08:28)
[2021-05-08] MEDS: cycloSPORINE 0.05% Ophthalmic Droperette EA EYE SCH ×2 (08:28→20:52)
[2021-05-08] MEDS: Carvedilol 3.125 MG TAB PO SCH ×2 (08:28→20:51)
[2021-05-08] MEDS ORDERED: Furosemide 20 MG/2 ML VIAL SLOW IVP SCH (10:00)
[2021-05-08] MEDS: Oxybutynin ER 5 MG TAB PO SCH (20:51)
[2021-05-09] MEDS ORDERED: Sodium Chloride 0.9% 1,000 ML IV SCH ×2 (06:00→08:15)
[2021-05-09] MEDS: Heparin 25,000 units/D5W 500 ML IVPB SCH (06:16)
[2021-05-09] MEDS: Carvedilol 3.125 MG TAB PO SCH ×2 (06:25→20:51)
[2021-05-09] MEDS: Aspirin Chewable 81 MG TAB PO SCH (06:27)
[2021-05-09] MEDS: Digoxin 0.125 MG TAB PO SCH (06:27)
[2021-05-09] MEDS: cycloSPORINE 0.05% Ophthalmic Droperette EA EYE SCH ×2 (06:27→20:59)
[2021-05-09] MEDS ORDERED: Lidocaine 1% (PF) 30 ML VIAL ONE (06:32)
[2021-05-09] MEDS ORDERED: Heparin 10,000 UNITS/ 10 ML VIAL ONE (06:37)
[2021-05-09] MEDS ORDERED: Fentanyl 100 MCG/2 ML VIAL ONE (07:28)
[2021-05-09] MEDS ORDERED: Midazolam HCl 2 mg/2 ml Vial ONE (07:28)
[2021-05-09] MEDS ORDERED: Protamine Sulfate 50 MG/5 ML VIAL ONE (07:42)
[2021-05-09] MEDS ORDERED: Acetaminophen/Codeine 30-300mg Tablet PO PRN ×2 (08:07)
[2021-05-09] MEDS ORDERED: Nitroglycerin 0.4 MG TAB (25 Tab Bottle) SL PRN (08:07)
[2021-05-09] MEDS ORDERED: Sodium Chloride 0.9% 200 ML IV PRN (08:07)
[2021-05-09] MEDS ORDERED: Furosemide 40 MG TAB PO SCH (08:15)
[2021-05-09] MEDS ORDERED: Iopamidol 370 76% 50 ML VIAL FS ONE (09:52)
[2021-05-09] MEDS ORDERED: Iopamidol 370 76% 100 ML VIAL ONE (09:52)
[2021-05-09 13:26] LABS: Hemoglobin 13.9 g/dL (12.0-16.0); Platelet Count 142 thou/uL (130-400)
[2021-05-09] MEDS: Oxybutynin ER 5 MG TAB PO SCH (20:58)
[2021-05-10 05:34] LABS: #Basophils 0.1 thou/uL (0.0-0.2); #Eosinphils 0.2 thou/uL (0.0-0.7); #Lymphocytes 2.8 thou/uL (1.20-3.40); #Monocytes 0.8 thou/uL (0.11-0.59); #Neutrophils 3.5 thou/uL (1.40-6.50); %Basophils 1.3 % (0.0-1.0); %Eosinophils 2.3 % (0.0-10.0); %Lymphocytes 38.4 % (21.0-51.0); %Monocytes 10.6 % (0.0-10.0); %Neutrophils 47.4 % (42.0-75.0); Hemoglobin 12.8 g/dL (12.0-16.0); Mean Corpuscular HGB CONC 33.6 g/dL (32.0-36.0); Mean Corpuscular Hemoglobin 33.8 pg (27.0-31.0); Mean Platelet Volume 7.8 fL (7.4-10.4); Platelet Count 197 thou/uL (130-400); RBC Distribution Width 12.5 % (11.5-14.5); Red Blood Cell (RBC) Count 3.79 mill/uL (4.20-5.40); White Blood Cell (WBC) Count 7.4 thou/uL (4.8-10.8)
[2021-05-10 05:51] LABS: Anion Gap 12 mmol/L (10-20); BUN (Urea Nitrogen) 19 mg/dL (9.8-20.1); Calc. Creatinine Clearance 30 mL/min (70-130); Calcium 8.9 mg/dL (7.8-10.44); Carbon Dioxide 33 mmol/L (23-31); Chloride 97 mmol/L (98-107); Glucose 85 mg/dL (83-110); Magnesium 1.6 mg/dL (1.6-2.6); Potassium 3.9 mmol/L (3.5-5.1); Sodium 138 mmol/L (136-145)
[2021-05-10] MEDS ORDERED: Furosemide 40 MG TAB PO SCH (07:30)
[2021-05-10 08:28] VITALS: BP 124/62; TEMP 98.2
[2021-05-10] MEDS: Digoxin 0.125 MG TAB PO SCH (08:49)
[2021-05-10] MEDS: Carvedilol 3.125 MG TAB PO SCH (08:49)
[2021-05-10] MEDS: Aspirin Chewable 81 MG TAB PO SCH (08:49)
[2021-05-10] MEDS: cycloSPORINE 0.05% Ophthalmic Droperette EA EYE SCH (11:20)
[2021-05-11] MEDS ORDERED: Apixaban 5 MG TAB PO SCH (09:00)
== END 2021-05-10 11:22 | disposition home or self-care (01) | DRG 286 ==
LOC: ERS 14:00 → 2SW 16:05 → OBSVTOIN 05-07 14:07
PROVIDERS: ADMIT Internal Medicine; ATTEND Student in an Organized Health Care Education/Training Program
PROC: 4A023N7 Measurement of Cardiac Sampling and Pressure, Left Heart, Percutaneous Approach (ICD-10-PCS; principal; 2021-05-09)
PROC: B2111ZZ Fluoroscopy of Multiple Coronary Arteries using Low Osmolar Contrast (ICD-10-PCS; 2021-05-09)
PROC: B2151ZZ Fluoroscopy of Left Heart using Low Osmolar Contrast (ICD-10-PCS; 2021-05-09)
DX: I25.110 Atherosclerotic heart disease of native coronary artery with unstable angina pectoris (principal); E43 Unspecified severe protein-calorie malnutrition; Z68.1 Body mass index [BMI] 19.9 or less, adult; I47.2 Ventricular tachycardia; I42.8 Other cardiomyopathies; E78.5 Hyperlipidemia, unspecified; K21.9 Gastro-esophageal reflux disease without esophagitis; I10 Essential (primary) hypertension; Z96.641 Presence of right artificial hip joint; I08.3 Combined rheumatic disorders of mitral, aortic and tricuspid valves; R77.8 Other specified abnormalities of plasma proteins; I48.0 Paroxysmal atrial fibrillation; G47.33 Obstructive sleep apnea (adult) (pediatric); M35.3 Polymyalgia rheumatica; G62.9 Polyneuropathy, unspecified; R05 Cough; T46.4X5A Adverse effect of angiotensin-converting-enzyme inhibitors, initial encounter; Z88.5 Allergy status to narcotic agent; Z79.899 Other long term (current) drug therapy; Z79.01 Long term (current) use of anticoagulants; Z85.828 Personal history of other malignant neoplasm of skin; Z85.3 Personal history of malignant neoplasm of breast; Z90.10 Acquired absence of unspecified breast and nipple; Z90.49 Acquired absence of other specified parts of digestive tract; Z90.710 Acquired absence of both cervix and uterus; Z88.8 Allergy status to other drugs, medicaments and biological substances; Z95.810 Presence of automatic (implantable) cardiac defibrillator
CPT/HCPCS: 36415; 71045; 80048; 80053; 80061; 80162; 82553; 83690; 83735; 83880; 84443; 84484; 85014; 85018; 85025; 85049; 85347; 85730; 93005; 93306; 93458; 94760; 96365; 99152; 99153; G0378; J1644; J1940; J2001; J2250; J2720; J3010; J3475; Q9967

== ENCOUNTER 2021-06-02 15:01 | Outpatient (CLI) | payer MEDICARE, BC | END 2021-06-02 15:02 | disposition home or self-care (01) | LOC: BICCT 15:01 | PROVIDERS: ATTEND Nurse Practitioner Family | DX: M53.3 Sacrococcygeal disorders, not elsewhere classified (principal); G89.4 Chronic pain syndrome; M48.061 Spinal stenosis, lumbar region without neurogenic claudication; K59.00 Constipation, unspecified; M85.80 Other specified disorders of bone density and structure, unspecified site; M47.816 Spondylosis without myelopathy or radiculopathy, lumbar region; Z98.890 Other specified postprocedural states | CPT/HCPCS: 72131; 72192 ==

== ENCOUNTER 2021-11-15 16:11 | Emergency (ER) | payer MEDICARE, BC ==
[~2021-11-15 16:11] MED LIST: Iopamidol-370 76% 500 ML 1 ML ONE
[2021-11-15] MEDS ORDERED: Ondansetron PF 4 MG/2 ML Vial ONE (17:07)
[2021-11-15 17:30] LABS: #Eosinphils 0.1 thou/uL (0.0-0.7); #Lymphocytes 1.9 thou/uL (1.20-3.40); #Monocytes 0.7 thou/uL (0.11-0.59); #Neutrophils 5.1 thou/uL (1.40-6.50); %Basophils 0.5 % (0.0-1.0); %Eosinophils 1.8 % (0.0-10.0); %Lymphocytes 23.9 % (21.0-51.0); %Monocytes 9.3 % (0.0-10.0); %Neutrophils 64.5 % (42.0-75.0); Hemoglobin 11.5 g/dL (12.0-16.0); Mean Corpuscular HGB CONC 32.8 g/dL (32.0-36.0); Mean Corpuscular Hemoglobin 34.9 pg (27.0-31.0); Mean Platelet Volume 7.4 fL (7.4-10.4); Platelet Count 187 thou/uL (130-400); RBC Distribution Width 11.6 % (11.5-14.5); Red Blood Cell (RBC) Count 3.31 mill/uL (4.20-5.40); White Blood Cell (WBC) Count 7.9 thou/uL (4.8-10.8)
[2021-11-15 17:38] LABS: ALT (SGPT) 11 U/L (8-55); AST (SGOT) 21 U/L (5-34); Albumin 3.5 g/dL (3.4-4.8); Alkaline Phosphatase 65 U/L (40-110); Anion Gap 13 mmol/L (10-20); BUN (Urea Nitrogen) 12 mg/dL (9.8-20.1); Bilirubin, Total 0.5 mg/dL (0.2-1.2); Calc. Creatinine Clearance 0 mL/min (70-130); Carbon Dioxide 28 mmol/L (23-31); Chloride 103 mmol/L (98-107); Globulin 3.2 g/dL (2.4-3.5); Glucose 106 mg/dL (83-110); Lipase 14 U/L (8-78); Potassium 3.6 mmol/L (3.5-5.1); Protein, Total 6.7 g/dL (5.8-8.1); Sodium 140 mmol/L (136-145)
[2021-11-15 18:14] LABS: MDiff Complete? YES; Macrocytosis SLIGHT = 6-15 cells (100X) (0-5/hpf); Platelet Morphology Comment Appears Adequate; Polychromasia SLIGHT = 2-3 cells (100X) (0-2/hpf)
[2021-11-15 19:34] LABS: Bacteria/HPF None Seen HPF (None Seen); Bilirubin Negative (Negative); Blood, Urine 2+ (Negative); Clarity Clear (Clear); Glucose, Urine (Dipstick) Normal (Negative); Ketone, Urine Negative (Negative); Leukocyte Negative Leu/uL (Negative); Nitrite Negative (Negative); Protein, Urine (Dipstick) Negative (Neg-Trace); Specific Gravity, Urine 1.037 (1.002-1.036); Squamous Epithelial None Seen HPF (0-3); Urobilinogen Normal mg/dL (Less than 2); WBC/HPF 0-3 HPF (0-3); pH, Urine 7.5 (5.0-9.0)
== END 2021-11-15 20:16 | disposition home or self-care (01) ==
LOC: ERS 16:11
DX: K59.00 Constipation, unspecified (principal); J44.9 Chronic obstructive pulmonary disease, unspecified; I25.10 Atherosclerotic heart disease of native coronary artery without angina pectoris; I48.91 Unspecified atrial fibrillation; K21.9 Gastro-esophageal reflux disease without esophagitis; Z87.891 Personal history of nicotine dependence; Z79.899 Other long term (current) drug therapy
CPT/HCPCS: 36415; 74177; 80053; 81003; 81015; 83690; 85025; 93005; 96374; J2405; Q9967

== ENCOUNTER 2023-01-22 21:36 | Inpatient (IN) | payer MEDICARE, BC ==
[2023-01-23] MEDS ORDERED: Ondansetron PF 4 MG/2 ML Vial IVP PRN (00:51)
[2023-01-23 01:41] LABS: Troponin I 0.021 ng/mL (< 0.028)
[2023-01-23 05:31] LABS: #Eosinphils 0.2 thou/uL (0.0-0.7); #Lymphocytes 1.7 thou/uL (1.20-3.40); #Monocytes 0.8 thou/uL (0.11-0.59); %Basophils 0.2 % (0.0-1.0); %Eosinophils 1.6 % (0.0-10.0); %Lymphocytes 17.6 % (21.0-51.0); %Monocytes 8.4 % (0.0-10.0); %Neutrophils 72.2 % (42.0-75.0); Hemoglobin 11.2 g/dL (12.0-16.0); Mean Corpuscular HGB CONC 33.6 g/dL (32.0-36.0); Mean Corpuscular Hemoglobin 34.7 pg (27.0-31.0); Mean Platelet Volume 7.5 fL (7.4-10.4); Platelet Count 146 10x3/uL (130-400); Red Blood Cell (RBC) Count 3.23 mill/uL (4.20-5.40); White Blood Cell (WBC) Count 9.7 10x3/uL (4.8-10.8)
[2023-01-23 05:51] LABS: Anion Gap 13 mmol/L (10-20); BUN (Urea Nitrogen) 31 mg/dL (9.8-20.1); Calc. Creatinine Clearance 0 mL/min (70-130); Calcium 8.9 mg/dL (7.8-10.44); Carbon Dioxide 31 mmol/L (23-31); Chloride 100 mmol/L (98-107); Estimated GFR 49; Glucose 93 mg/dL (83-110); Sodium 140 mmol/L (136-145)
[2023-01-23 05:56] LABS: Troponin I 0.026 ng/mL (< 0.028)
[2023-01-23 08:00] VITALS: BMI 18.0
[2023-01-23] MEDS: cefTRIAXone\\ROCEPHIN 1 GM in Sodium Chloride 0.9% 100 ML IVPB SCH (14:07)
[2023-01-23 17:25] LABS: Bacteria/HPF None Seen HPF (None Seen); Bilirubin Negative (Negative); Blood, Urine Negative (Negative); Clarity Clear (Clear); Glucose, Urine (Dipstick) Normal (Negative); Ketone, Urine Negative (Negative); Leukocyte Negative Leu/uL (Negative); Nitrite Negative (Negative); Protein, Urine (Dipstick) Negative (Neg-Trace); Specific Gravity, Urine 1.012 (1.002-1.036); Squamous Epithelial None Seen HPF (0-3); Urobilinogen Normal mg/dL (Less than 2); WBC/HPF 0-3 HPF (0-3)
[2023-01-23] MEDS: Acetaminophen 325 MG TAB PO PRN (18:38)
[2023-01-24 05:17] LABS: #Eosinphils 0.4 thou/uL (0.0-0.7); #Lymphocytes 1.4 thou/uL (1.20-3.40); #Monocytes 0.7 thou/uL (0.11-0.59); #Neutrophils 5.7 thou/uL (1.40-6.50); %Basophils 0.4 % (0.0-1.0); %Eosinophils 4.3 % (0.0-10.0); %Lymphocytes 16.9 % (21.0-51.0); %Monocytes 8.8 % (0.0-10.0); %Neutrophils 69.6 % (42.0-75.0); Hemoglobin 12.6 g/dL (12.0-16.0); Mean Corpuscular HGB CONC 32.8 g/dL (32.0-36.0); Mean Platelet Volume 7.7 fL (7.4-10.4); Platelet Count 160 10x3/uL (130-400); White Blood Cell (WBC) Count 8.2 10x3/uL (4.8-10.8)
[2023-01-24 05:43] LABS: Anion Gap 10 mmol/L (10-20); BUN (Urea Nitrogen) 21 mg/dL (9.8-20.1); Calc. Creatinine Clearance 36 mL/min (70-130); Calcium 9.2 mg/dL (7.8-10.44); Carbon Dioxide 32 mmol/L (23-31); Chloride 103 mmol/L (98-107); Estimated GFR 74; Glucose 97 mg/dL (83-110); Potassium 4.2 mmol/L (3.5-5.1); Sodium 141 mmol/L (136-145)
[2023-01-24 05:46] LABS: Digoxin 1.29 ng/mL (0.8-2.0)
[2023-01-24] MEDS: Carvedilol 3.125 MG TAB PO SCH ×2 (09:20→16:02)
[2023-01-24] MEDS: Aspirin 81 mg Enteric Coated Tablet PO SCH (09:20)
[2023-01-24] MEDS: Acetaminophen 325 MG TAB PO PRN ×3 (09:29→20:06)
[2023-01-24] MEDS: cefTRIAXone\\ROCEPHIN 1 GM in Sodium Chloride 0.9% 100 ML IVPB SCH (13:17)
[2023-01-24] MEDS: Famotidine 20 MG TAB PO SCH (20:07)
[2023-01-24] MEDS: Heparin 5,000 UNITS/ML VIAL SC SCH (20:07)
[2023-01-25] MEDS: HYDROcodone/Acetaminophen 5/325 mg Tablet PO PRN ×2 (00:03→22:08)
[2023-01-25 05:37] LABS: #Basophils 0.1 thou/uL (0.0-0.2); #Eosinphils 0.5 thou/uL (0.0-0.7); #Lymphocytes 2.1 thou/uL (1.20-3.40); #Monocytes 0.8 thou/uL (0.11-0.59); #Neutrophils 5.6 thou/uL (1.40-6.50); %Basophils 0.9 % (0.0-1.0); %Eosinophils 5.3 % (0.0-10.0); %Lymphocytes 23.6 % (21.0-51.0); %Monocytes 8.7 % (0.0-10.0); %Neutrophils 61.5 % (42.0-75.0); Hemoglobin 13.4 g/dL (12.0-16.0); Mean Corpuscular HGB CONC 33.5 g/dL (32.0-36.0); Mean Corpuscular Hemoglobin 34.7 pg (27.0-31.0); Mean Platelet Volume 8.1 fL (7.4-10.4); Platelet Count 149 10x3/uL (130-400); RBC Distribution Width 12.1 % (11.5-14.5); Red Blood Cell (RBC) Count 3.87 mill/uL (4.20-5.40)
[2023-01-25 05:56] LABS: Anion Gap 14 mmol/L (10-20); BUN (Urea Nitrogen) 18 mg/dL (9.8-20.1); Calc. Creatinine Clearance 34 mL/min (70-130); Calcium 9.2 mg/dL (7.8-10.44); Carbon Dioxide 28 mmol/L (23-31); Cardiac Risk 2.2 (Less than 4.5); Chloride 103 mmol/L (98-107); Cholesterol 120 mg/dl (< 200 Desired); Estimated GFR 77; Glucose 96 mg/dL (83-110); HDL Cholesterol 55 mg/dL (>60 Neg Risk); LDL Cholesterol, Calculated 48 mg/dL; Potassium 3.8 mmol/L (3.5-5.1); Sodium 141 mmol/L (136-145); Triglycerides 87 mg/dL (Less than 150)
[2023-01-25] MEDS: Acetaminophen 325 MG TAB PO PRN ×3 (08:04→20:10)
[2023-01-25] MEDS: Aspirin 81 mg Enteric Coated Tablet PO SCH (08:04)
[2023-01-25] MEDS: Carvedilol 3.125 MG TAB PO SCH (08:04)
[2023-01-25] MEDS: Heparin 5,000 UNITS/ML VIAL SC SCH ×2 (08:05→20:09)
[2023-01-25] MEDS: Furosemide 20 MG TAB PO SCH (10:01)
[2023-01-25] MEDS: cefTRIAXone\\ROCEPHIN 1 GM in Sodium Chloride 0.9% 100 ML IVPB SCH (13:56)
[2023-01-25] MEDS: Carvedilol 6.25 MG TAB PO SCH (15:58)
[2023-01-25] MEDS: Cefdinir 300 MG CAP PO SCH (15:58)
[2023-01-25] MEDS: Famotidine 20 MG TAB PO SCH (20:10)
[2023-01-26] MEDS: Cefdinir 300 MG CAP PO SCH (03:07)
[2023-01-26] MEDS: Furosemide 20 MG TAB PO SCH (09:52)
[2023-01-26] MEDS: Carvedilol 6.25 MG TAB PO SCH ×2 (09:52→18:19)
[2023-01-26] MEDS: Aspirin 81 mg Enteric Coated Tablet PO SCH (09:52)
[2023-01-26] MEDS: Heparin 5,000 UNITS/ML VIAL SC SCH ×2 (09:53→20:11)
[2023-01-26] MEDS: Meclizine HCl 12.5 MG TAB PO SCH ×2 (15:29→20:10)
[2023-01-26] MEDS: HYDROcodone/Acetaminophen 5/325 mg Tablet PO PRN ×2 (15:29→20:10)
[2023-01-26] MEDS: Famotidine 20 MG TAB PO SCH (20:10)
[2023-01-27] MEDS: Furosemide 20 MG TAB PO SCH (09:08)
[2023-01-27] MEDS: Acetaminophen 325 MG TAB PO PRN (09:08)
[2023-01-27] MEDS: Heparin 5,000 UNITS/ML VIAL SC SCH ×2 (09:09→20:12)
[2023-01-27] MEDS: Carvedilol 6.25 MG TAB PO SCH ×2 (09:09→17:55)
[2023-01-27] MEDS: Meclizine HCl 12.5 MG TAB PO SCH ×3 (09:09→20:10)
[2023-01-27] MEDS: Aspirin 81 mg Enteric Coated Tablet PO SCH (09:09)
[2023-01-27] MEDS ORDERED: Acetaminophen/Codeine 30-300mg Tablet PO PRN (12:10)
[2023-01-27] MEDS: Famotidine 20 MG TAB PO SCH (20:10)
[2023-01-27] MEDS: Simethicone Chewable 80 MG TAB PO PRN (20:10)
[2023-01-27] MEDS: HYDROcodone/Acetaminophen 5/325 mg Tablet PO PRN (20:11)
[2023-01-28] MEDS: Furosemide 20 MG TAB PO SCH (09:05)
[2023-01-28] MEDS: Aspirin 81 mg Enteric Coated Tablet PO SCH (09:05)
[2023-01-28] MEDS: Meclizine HCl 12.5 MG TAB PO SCH ×3 (09:05→20:21)
[2023-01-28] MEDS: Carvedilol 6.25 MG TAB PO SCH ×2 (09:06→17:18)
[2023-01-28] MEDS: Acetaminophen 325 MG TAB PO PRN (09:06)
[2023-01-28] MEDS: Heparin 5,000 UNITS/ML VIAL SC SCH ×2 (09:08→20:22)
[2023-01-28] MEDS ORDERED: Polyethylene Glycol 3350 17 GM Packet PO PRN (11:52)
[2023-01-28] MEDS ORDERED: Simethicone Chewable 80 MG TAB PO PRN (11:55)
[2023-01-28] MEDS: HYDROcodone/Acetaminophen 5/325 mg Tablet PO PRN ×2 (15:53→20:21)
[2023-01-28] MEDS: Simethicone Chewable 80 MG TAB PO PRN (20:21)
[2023-01-28] MEDS: Famotidine 20 MG TAB PO SCH (20:21)
[2023-01-29] MEDS ORDERED: Lidocaine 4% Patch TD SCH (09:00)
[2023-01-29] MEDS: Carvedilol 6.25 MG TAB PO SCH (09:11)
[2023-01-29] MEDS: Aspirin 81 mg Enteric Coated Tablet PO SCH (09:11)
[2023-01-29] MEDS: Meclizine HCl 12.5 MG TAB PO SCH ×2 (09:12→16:06)
[2023-01-29] MEDS: Furosemide 20 MG TAB PO SCH (09:12)
[2023-01-29] MEDS: Heparin 5,000 UNITS/ML VIAL SC SCH (09:12)
[2023-01-29 12:13] VITALS: BP 112/54; TEMP 98.3
[2023-01-29] MEDS ORDERED: Transdermal Patch Removal TOP SCH (21:00)
== END 2023-01-29 15:45 | DRG 149 ==
LOC: ERS 21:36 → NEURO 01-23 00:35 → OBSVTOIN 01-25 12:28
PROVIDERS: ADMIT Internal Medicine; ATTEND Internal Medicine
PROC: 0T9B70Z Drainage of Bladder with Drainage Device, Via Natural or Artificial Opening (ICD-10-PCS; principal; 2023-01-29)
DX: H81.10 Benign paroxysmal vertigo, unspecified ear (principal); I50.22 Chronic systolic (congestive) heart failure; N17.9 Acute kidney failure, unspecified; I42.8 Other cardiomyopathies; Z68.1 Body mass index [BMI] 19.9 or less, adult; I25.10 Atherosclerotic heart disease of native coronary artery without angina pectoris; I11.0 Hypertensive heart disease with heart failure; E78.5 Hyperlipidemia, unspecified; J44.9 Chronic obstructive pulmonary disease, unspecified; I73.00 Raynaud's syndrome without gangrene; M35.3 Polymyalgia rheumatica; G62.9 Polyneuropathy, unspecified; G89.29 Other chronic pain; Z96.641 Presence of right artificial hip joint; R33.9 Retention of urine, unspecified; I48.0 Paroxysmal atrial fibrillation; I34.0 Nonrheumatic mitral (valve) insufficiency; E78.00 Pure hypercholesterolemia, unspecified; G47.33 Obstructive sleep apnea (adult) (pediatric); N95.2 Postmenopausal atrophic vaginitis; Z66 Do not resuscitate; M47.812 Spondylosis without myelopathy or radiculopathy, cervical region; R63.6 Underweight; K59.00 Constipation, unspecified; Z20.822 Contact with and (suspected) exposure to COVID-19; Z88.5 Allergy status to narcotic agent; Z88.8 Allergy status to other drugs, medicaments and biological substances; Z95.810 Presence of automatic (implantable) cardiac defibrillator; Z85.3 Personal history of malignant neoplasm of breast; Z85.828 Personal history of other malignant neoplasm of skin; Z79.01 Long term (current) use of anticoagulants; Z79.899 Other long term (current) drug therapy; Z98.890 Other specified postprocedural states; Z90.49 Acquired absence of other specified parts of digestive tract; Z90.710 Acquired absence of both cervix and uterus; Z87.891 Personal history of nicotine dependence
CPT/HCPCS: 36415; 70450; 72125; 80048; 80061; 80162; 81001; 83880; 84484; 85025; 87086; 93306; 96374; 96376; 99285; G0378; G0390; J0696; J1644; J3490; U0003; U0005

== ENCOUNTER 2023-04-08 10:08 | Emergency (ER) | payer MEDICARE, BC ==
[2023-04-08 11:19] LABS: #Monocytes 1.8 thou/uL (0.11-0.59); #Neutrophils 10.8 thou/uL (1.40-6.50); %Basophils 0.1 % (0.0-1.0); %Eosinophils 0.1 % (0.0-10.0); %Lymphocytes 10.4 % (21.0-51.0); %Neutrophils 76.1 % (42.0-75.0); Mean Corpuscular HGB CONC 32.4 g/dL (32.0-36.0); Mean Corpuscular Hemoglobin 31.6 pg (27.0-31.0); Mean Corpuscular Volume 97.4 fl (78.0-98.0); Mean Platelet Volume 9.7 fL (7.4-10.4); Platelet Count 212 10x3/uL (130-400); RBC Distribution Width 13.4 % (11.5-14.5); Red Blood Cell (RBC) Count 3.48 mill/uL (4.20-5.40); White Blood Cell (WBC) Count 14.1 10x3/uL (4.8-10.8)
[2023-04-08] MEDS ORDERED: Ketorolac Tromethamine 30 MG/ML VIAL ONE (11:24)
[2023-04-08 11:44] LABS: ALT (SGPT) 7 U/L (8-55); AST (SGOT) 13 U/L (5-34); Albumin 3.2 g/dL (3.4-4.8); Alkaline Phosphatase 89 U/L (40-110); Anion Gap 16 mmol/L (10-20); BUN (Urea Nitrogen) 20 mg/dL (9.8-20.1); Bilirubin, Total 0.5 mg/dL (0.2-1.2); CK (CPK) 14 U/L (29-168); Calc. Creatinine Clearance 0 mL/min (70-130); Calcium 9.2 mg/dL (7.8-10.44); Carbon Dioxide 28 mmol/L (23-31); Chloride 99 mmol/L (98-107); Estimated GFR 66; Globulin 4.5 g/dL (2.4-3.5); Glucose 111 mg/dL (83-110); Potassium 4.1 mmol/L (3.5-5.1); Protein, Total 7.7 g/dL (5.8-8.1); Sodium 139 mmol/L (136-145)
[2023-04-08 12:00] LABS: Bacteria/HPF None Seen HPF (None Seen); Bilirubin Negative (Negative); Blood, Urine Trace (Negative); Clarity Clear (Clear); Glucose, Urine (Dipstick) Normal (Negative); Ketone, Urine Trace mg/dL (Negative); Leukocyte 250 Leu/uL (Negative); Nitrite Negative (Negative); Protein, Urine (Dipstick) 20 mg/dL (Neg-Trace); Specific Gravity, Urine 1.017 (1.002-1.036); Squamous Epithelial 0-3 HPF (0-3); Urobilinogen Normal mg/dL (Less than 2)
== END 2023-04-08 17:05 ==
LOC: ERS 10:08
DX: M79.10 Myalgia, unspecified site (principal); D72.829 Elevated white blood cell count, unspecified; J44.9 Chronic obstructive pulmonary disease, unspecified; K21.9 Gastro-esophageal reflux disease without esophagitis; Z79.82 Long term (current) use of aspirin; Z87.891 Personal history of nicotine dependence
CPT/HCPCS: 36415; 72125; 80053; 81003; 81015; 82550; 83605; 85025; 87086; 93005; 94760; 96374; J1885